=== PATIENT | male | born 1950 | race Caucasian/White ===

== ENCOUNTER → 2017-10-01 | Day surgery (SDC) | payer MEDICARE ==
[2017-09-28 16:32] VITALS: BMI 21.7
[~2017-10-01] MED LIST: Atropine Sulfate 1 mg/10 ml Syringe ONE; Fentanyl 100 MCG/2 ML VIAL ONE; Heparin 10,000 UNITS/1 ML VIAL ONE; Heparin 1000 UNIT/NS 500ML(OR) 500 ML ONE; Iopamidol 370 76% 50 ML VIAL FS ONE; Midazolam HCl 2 mg/2 ml Vial ONE; Norepinephrine 4 MG/4 ML VIAL ONE; Ondansetron HCl/PF 4 MG/2 ML Vial ONE; Protamine Sulfate 50 MG/5 ML VIAL ONE
[2017-10-01 06:47] LABS: #Eosinphils 0.2 thou/uL (0.0-0.7); #Lymphocytes 1.5 thou/uL (1.20-3.40); #Monocytes 0.5 thou/uL (0.11-0.59); #Neutrophils 3.6 thou/uL (1.40-6.50); %Basophils 0.6 % (0.0-1.0); %Eosinophils 2.7 % (0.0-10.0); %Lymphocytes 25.6 % (21.0-51.0); %Monocytes 7.9 % (0.0-10.0); Hematocrit 48.1 % (42.0-52.0); Mean Platelet Volume 8.2 fL (7.4-10.4); Red Blood Cell (RBC) Count 5.22 mill/uL (4.70-6.10); White Blood Cell (WBC) Count 5.7 thou/uL (4.8-10.8)
[2017-10-01 06:55] LABS: Anion Gap 10 mmol/L (10-20); BUN (Urea Nitrogen) 15 mg/dL (8.4-25.7); Calc. Creatinine Clearance 75 mL/min (70-130); Calcium 9.9 mg/dL (7.8-10.44); Carbon Dioxide 28 mmol/L (23-31); Chloride 103 mmol/L (98-107); Estimated GFR-MDRD 78
--- NOTE | 2017-10-01 13:32 | OP ---
PREPROCEDURE DIAGNOSES: Severe left lower extremity peripheral vascular disease with return of lifes tyle limiting left calf claudication. DESKTOP SUPPORT TECHNICIAN: Trevin Machuca M.D. AUTOPSY PATHOLOGIST: Amari. POSTPROCEDURE DIAGNOSES: Severe left lower extremity peripheral vascular disease with return of life style limiting left calf claudication. ANESTHESIA: IV sedation and local at left groin access site. PROCEDURES PERFORMED: 1. Antegrade left femoral artery/ABF graft limb access via ultrasound guidance. 2. Selective left superficial femoral angiogram. 3. DCB, CUSTOM HARVESTER, proximal left SFA (Bard Lutonix 7 x 40 at 7 atmospheres for 3 minutes). FINDINGS/INTERPRETATION: 1. Patent left ABF graft/common femoral artery anastomosis. 2. Patent large left profunda femoris artery. 3. Focal, subtotaled proximal left SFA stenosis. Previously intervened upon mid SFA and popliteal a rtery were patent with only mild areas of restenosis. Popliteal artery was patent across the knee wi th 2-vessel runoff to the foot provided by the posterior tibial and peroneal arteries. DESCRIPTION OF PROCEDURE: The patient was taken to the angiography suite. He was prepped and draped in usual sterile fashion. Intravenous sedation was achieved with a combination of Versed and fentan yl. Left groin access site was anesthetized with 1% Xylocaine. Using ultrasound guidance, the femor al limb of the previous aortobifemoral bypass graft was accessed with the 4-Irish micropuncture need le. Sequential dilators through the graft were brought back up to 7-Irish, allowed ultimate placeme nt of a conventional 5-Irish sheath. A left superficial femoral artery angiogram was performed. Fi ndings as described above. A decision was made to intervene to the new proximal SFA stenosis. Magic torque wire was passed with the tip parked at the level of the knee. Sizing led to selection of the 7 x 40 Lutonix DC balloon. The proximal SFA lesion was pretreated with the 7 x 40 Ultraverse CUSTOM HARVESTER anahi sung. Inflation was carried at 6 atmospheres for 2 minutes. Ultraverse balloon catheter was remove d. The 7 x 40 Lutonix balloon catheter was now passed. Inflation was held at 7 atmospheres for 3 mi nutes. Lutonix balloon catheter was removed. Sheath injection revealed an excellent result with no residual stenosis in the treated lesion. Previously given total of 6000 units of heparin was reverse d with 15 mg of protamine as ACT was 196. Sheath was subsequently removed and pressure held. The pa tient appeared to tolerate the procedure without evident problems. Estimated blood loss 50 mL. Tota l contrast 24 mL. FLUOROSCOPY TIME: 7.7 minutes.
--- NOTE | 2017-10-01 22:23 | CCL ---
PREPROCEDURE DIAGNOSES: Severe left lower extremity peripheral vascular disease with return of lifestyle limiting left calf claudication. ORDER PACKER OR PACKAGER: Trevin Machuca M.D. CREDIT CARD CLERK: Amari. POSTPROCEDURE DIAGNOSES: Severe left lower extremity peripheral vascular disease with return of lifestyle limiting left calf claudication. ANESTHESIA: IV sedation and local at left groin access site. PROCEDURES PERFORMED: 1. Antegrade left femoral artery/ABF graft limb access via ultrasound guidance. 2. Selective left superficial femoral angiogram. 3. DCB SAND CUTTER proximal left SFA (Bard Lutonix 7 x 40 at 7 atmospheres for 3 minutes). FINDINGS/INTERPRETATION: 1. Patent left ABF graft limb/common femoral artery anastomosis. 2. Patent large left profunda femoris artery. 3. Focal, subtotaled proximal left SFA stenosis. Previously intervened upon mid SFA and popliteal artery were patent with only mild areas of restenosis. Popliteal artery was patent across the knee with 2-vessel runoff to the foot provided by the posterior tibial and peroneal arteries. DESCRIPTION OF PROCEDURE: The patient was taken to the angiography suite. He was prepped and draped in usual sterile fashion. Intravenous sedation was achieved with a combination of Versed and Fentanyl. Left groin access site was anesthetized with 1% Xylocaine. Using ultrasound guidance, the femoral limb of the previous aortobifemoral bypass graft was accessed with the 4-Welsh micropuncture needle. Sequential dilators through the graft were passed up to 7 -Welsh, allowing ultimate placement of a conventional 5-Welsh sheath. Left superficial femoral artery angiogram was performed. Findings as described above. Decision was made to intervene to the new proximal SFA stenosis. Magic torque wire was passed with tip parked at the level of the knee. Sizing led to selection of the 7 x 40 Lutonix balloon. The proximal SFA lesion was pretreated with the 7 x 40 Ultraverse balloon with inflation held at 6 atmospheres for 2 minutes. Ultraverse balloon catheter was removed. The 7 x 40 Lutonix balloon catheter was now passed. Inflation was held at 7 atmospheres for 3 minutes. Lutonix balloon catheter was removed. Sheath injection revealed an excellent result with no residual stenosis in the treated lesion. Previously given total of 6000 units of heparin was reversed with 15 mg of protamine as ACT was 196. Sheath was subsequently removed and pressure held. The patient appeared to tolerate the procedure without evident problems. Estimated blood loss 50 mL. Total contrast 24 mL. FLUOROSCOPY TIME: 7.7 minutes. POS: JOHN MAGALY
== END ==
LOC: CCL 06:05
PROVIDERS: ATTEND Thoracic Surgery (Cardiothoracic Vascular Surgery)
PROC: B40GYZZ Plain Radiography of Left Lower Extremity Arteries using Other Contrast (ICD-10-PCS; principal; 2017-10-01)
DX: I73.9 Peripheral vascular disease, unspecified (principal); F17.210 Nicotine dependence, cigarettes, uncomplicated; I10 Essential (primary) hypertension; I25.10 Atherosclerotic heart disease of native coronary artery without angina pectoris; Z79.82 Long term (current) use of aspirin; Z79.1 Long term (current) use of non-steroidal anti-inflammatories (NSAID); Z79.899 Other long term (current) drug therapy; Z98.890 Other specified postprocedural states
CPT/HCPCS: 36247; 37224; 76942; 80048; 85025; 85347 ×2; C1725; C1769 ×3; 36415; 99152; 99153; J0461; J1644; J2250; J2405; J2720; J3010

== ENCOUNTER 2018-02-05 08:00 | Outpatient (CLI) | payer MEDICARE ==
--- NOTE | 2018-02-05 10:33 | CT ---
CT PULMONARY LUNG SCREENING SCAN: HISTORY: A 67-year-old male with a history of a 45 pack-year smoking history with cough and occasional shortne ss of breath. This is a low dose lung screening scan. FINDINGS: There are some minimal, subtle bullous emphysema changes noted bilaterally There is one tiny nodule in the right upper lobe and one tiny nodule in the left upper lobe. Both of these are subpleural and approximately 0.2 cm in size. Extensive three vessel coronary artery calcific disease. No pericard ial effusion or pleural effusion. There appear to be some minimal calcific changes immediately adjac ent to the esophagus or some moderately dense radiopaque material within the esophagus, at the level of the left mainstem bronchus. IMPRESSION: 1. Very small bilateral subpleural nodules with a very low likelihood of becoming clinically active cancer due to size. Primary category 2. Continued annual lung screening in 12 months. 2. Fairly extensive three vessel coronary artery calcific disease. POS: [facility]
== END 2018-02-05 08:01 | disposition home or self-care (01) ==
LOC: CT 08:00
PROVIDERS: ATTEND Family Medicine
DX: F17.210 Nicotine dependence, cigarettes, uncomplicated (principal); R91.8 Other nonspecific abnormal finding of lung field; I25.10 Atherosclerotic heart disease of native coronary artery without angina pectoris
CPT/HCPCS: G0297

== ENCOUNTER 2024-05-15 09:06 | Outpatient (CLI) | payer BC, MEDICARE | END 2024-05-15 09:07 | disposition home or self-care (01) | LOC: RAD 09:06 | PROVIDERS: ATTEND Internal Medicine Critical Care Medicine | DX: R06.02 Shortness of breath (principal) | CPT/HCPCS: 71046 ==